=== PATIENT | female | born 1980 | race Caucasian/White ===

== ENCOUNTER 2025-01-31 06:56 | Outpatient (CLI) | payer OTHER, SELFPAY | END 2025-01-31 06:57 | disposition home or self-care (01) | PROVIDERS: PCP Family Medicine; Visit Provider Family Medicine | DX: M54.16 Radiculopathy, lumbar region (principal); M51.369 Other intervertebral disc degeneration, lumbar region without mention of lumbar back pain or lower extremity pain | CPT/HCPCS: 62323; Q9966 ==

== ENCOUNTER 2025-07-11 08:16 | Outpatient (CLI) | payer OTHER, SELFPAY | END 2025-07-11 08:17 | disposition home or self-care (01) | LOC: INJ CL 08:18 | PROVIDERS: PCP Family Medicine; Visit Provider Family Medicine | DX: M47.816 Spondylosis without myelopathy or radiculopathy, lumbar region (principal) | CPT/HCPCS: 64493; 64494; J0702; Q9966 ==